=== PATIENT | female | born 1990 | race Caucasian/White ===

== ENCOUNTER 2024-10-01 08:21 | Emergency (ER) | payer BC, SELFPAY ==
--- OUTSIDE RECORDS SUMMARY | 2024-10-01 08:24 | XMS REPORT | Continuity of Care Document ---
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 Name Role Phone MARISA ENRIQUE Attending Clinician Aca ble Payers Payer Name Policy Type Policy Number Effective Date Expirati on Date Source [employer] CHOICE POS II [id number] 2018 00:00:00 Allergies, Adverse Reactions, Alerts Allergy Name Allergy Type Status Severity Reaction(s) Onset Date Inactive Date Treating Clinician Comments Source NO KNOWN ALLERGIE S Drug Class Active [facility] Social History Smoking Status Start Date Stop Date Source Heavy Tobacco Smoker [facility] Medical Medications Ordered Medication Name Filled Medication Name Start Date Stop Date Current Medication? Ordering Clinician Indication Dosage Frequency Signature (SIG) Comments Components Source buspirone 5 mg tablet 15 mg every 6 hours by oral route. buspirone 5 mg tablet 15 mg every 6 hours by oral route. 2023-06 00:00: 00 No 15mg Q6H buspirone 5 mg tablet 15 mg every 6 hours by oral route. [facility] Vital Signs Vital Name Observation Time Observation Value Comments S ource BP Diastolic 2024-03-23 00:00:00 84 mm[Hg] [facility] Height 2024-03-23 00:00:00 67 [in_i] [facility] BMI (Body Mass Index) 2024-03-23 00:00:00 42.3 kg/m2 [facility] BP Systolic 2024-03-23 00:00:00 132 mm[Hg] [facility] Body Weight 2024-03-23 00:00:00 270 [lb_av] [facility] Encounters Start Date/Time End Date/Time Encounter Type Admission Type Attending Clinicians Care Facility Care Department Encounter ID Source 2024-03-23 00:00:00 2024-03-23 00:00:00 Edita Avelar MD: [id number] [place] [address] , Ph. [email or web address] [place] Office [id number] [facility] 2020-07-11 11:00:00 2020-07-11 11:00:00 Outpatient MARISA TAAMYO [facility] [id number] [facility] 2020-07-11 11:00:00 2020-07-11 11:00:00 Outpatient MARISA TAMAYO [facility] [id number] [facility] 2020-05-24 11:00:00 2020-05-24 11:00:00 Outpatient MARISA TAMAYO [facility] [id number] [facility] 2020-05-24 11:00:00 2020-05-24 11:00:00 Outpatient MARISA TAMAYO [facility] [id number] [facility]
--- NOTE | 2024-10-01 08:52 | EDPHYS ---
Physician Documentation [facility] Name: Bozena Vivar Age: 34 yrs Sex: Female : 1990 Arrival Date: 10/01/2024 Time: 08:21 Bed 4 Private MD: ED Physician Dillan Barrett HPI: 10/01 08:48 This 34 yrs old Female presents to ER via Ambulatory with complaints of Foreign Body In rn Ear. 08:48 The patient presents with a foreign body sensation. The complaints affect the right rn ear. Onset: The symptoms/episode began/occurred this morning. Modifying factors: The symptoms are alleviated by nothing, the symptoms are aggravated by nothing. The patient has not experienced similar symptoms in the past. Patient reports had foreign body sensation in right ear. Hitchcock fluttering and possibly insect in ear this morning. By the time she arrived sensation has gone. No foreign body sensation or vibration or movement sensed by patient. Patient did try to get it out and has small abrasion to auditory canal but no active drainage. No change in hearing.. Historical: - Allergies: 08:30 No Known Allergies; aa5 - PMHx: 08:30 Pre-diabetes; aa5 - PSHx: 08:30 None; aa5 - Immunization history:: Adult Immunizations unknown. - Infectious Disease History:: Denies. - Social history:: Smoking status: Patient reports the use of cigarette tobacco products. - Family history:: not pertinent. - Hospitalizations: : No recent hospitalization is reported. ROS: 08:48 Constitutional: Negative for fever, chills, and weight loss, ENT: No longer has foreign rn body sensation in right ear, has mild discomfort Exam: 08:48 Constitutional: This is a well developed, well nourished patient who is awake, alert, rn and in no acute distress. ENT: Left auditory canal and TM normal. Right auditory canal with small abrasion at 3 o'clock position, no foreign body or insect found, no evidence of perforation or damage to TM. Vital Signs: 08:30 BP 131 / 87; Pulse 86; Resp 16 S; Temp 97.5(TE); Pulse Ox 97% on R/A; Weight 117.93 kg aa5 (R); Height 5 ft. 7 in. (R); 08:30 Body Mass Index 40.72 (117.93 kg, 170.18 cm) aa5 MDM: 08:27 Medical Screening Exam initiated rn 08:48 Differential diagnosis: foreign body. Data reviewed: vital signs, nurses notes, and as rn a result, I will discharge patient. Counseling: I had a detailed discussion with the patient and/or guardian regarding the historical points, exam findings, and any diagnostic results supporting the discharge/admit diagnosis, the need for outpatient follow up, to return to the emergency department if symptoms worsen or persist or if there are any questions or concerns that arise at home. Special discussion: I discussed with the patient/guardian in detail that at this point there is no indication for admission to the hospital. It is understood, however, that if the symptoms persist or worsen the patient needs to return immediately for re-evaluation. ED course: No foreign body identified, insect likely exited prior to evaluation.. Administered Medications: No medications were administered Disposition Summary: 10/01/24 08:51 Discharge Ordered Notes: Location: Home rn Problem: new rn Symptoms: have improved rn Condition: Stable rn Diagnosis - Foreign body in right ear - insect, resolved prior to arrival rn Followup: rn - With: Private Physician - When: As needed - Reason: Recheck today's complaints, Re-evaluation by your physician Discharge Instructions: - Discharge Summary Sheet rn - Ear Foreign Body rn Forms: - Medication Reconciliation Form rn - Antibiotic director of government sales - Prescription Opioid Use rn - Patient Portal Instructions rn - Leadership Thank You Letter rn Signatures: Dillan Barrett MD MD rn Calderon, Audri, RN RN aa5
--- NOTE | 2024-10-01 08:52 | ER ---
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 08:30 Coronavirus screen: At this time, the client does not indicate any symptoms associated aa5 with coronavirus-19. Ebola Screen: Patient denies travel to an Ebola-affected area in the 21 days before illness onset. Initial Sepsis Screen: Does the patient meet any 2 criteria? No. Patient's initial sepsis screen is negative. Does the patient have a suspected source of infection? No. Patient's initial sepsis screen is negative. Risk Assessment: Do you want to hurt yourself or someone else? Patient reports no desire to harm self or others. Onset of symptoms was September 2024. 08:30 Acuity: UMESH 4 aa5 08:30 Method Of Arrival: Ambulatory aa5 Triage Assessment: 08:42 General: Appears in no apparent distress. uncomfortable, Behavior is cooperative, bp appropriate for age, anxious. Pain: Complains of pain in right ear. EENT: Reports pain in right ear. Neuro: No deficits noted. Cardiovascular: No deficits noted. Respiratory: No deficits noted. GI: No signs and/or symptoms were reported involving the gastrointestinal system. : No signs and/or symptoms were reported regarding the genitourinary system. Derm: No deficits noted. Musculoskeletal: No deficits noted. Historical: - Allergies: 08:30 No Known Allergies; aa5 - PMHx: 08:30 Pre-diabetes; aa5 - PSHx: 08:30 None; aa5 - Immunization history:: Adult Immunizations unknown. - Infectious Disease History:: Denies. - Social history:: Smoking status: Patient reports the use of cigarette tobacco products. - Family history:: not pertinent. - Hospitalizations: : No recent hospitalization is reported. Screenin:43 [facility] ED Fall Risk Assessment (Adult) History of falling in the last 3 months, bp including since admission No falls in past 3 months (0 pts) Confusion or Disorientation No (0 pts) Intoxicated or Sedated No (0 pts) Impaired Gait No (0 pts) Mobility Assist Device Used No (0 pt) Altered Elimination No (0 pt) Score/Fall Risk Level 0 - 2 = Low Risk Oriented to surroundings. Abuse screen: Denies threats or abuse. Denies injuries from another. Nutritional screening: No deficits noted. Tuberculosis screening: No symptoms or risk factors identified. Assessment: 08:43 General: Appears in no apparent distress. uncomfortable, Behavior is cooperative, bp appropriate for age, anxious. Vital Signs: 08:30 BP 131 / 87; Pulse 86; Resp 16 S; Temp 97.5(TE); Pulse Ox 97% on R/A; Weight 117.93 kg aa5 (R); Height 5 ft. 7 in. (R); 08:30 Body Mass Index 40.72 (117.93 kg, 170.18 cm) aa5 ED Course: 08:25 Patient arrived in ED. cj3 08:27 Dillan Barrett MD is Attending Physician. rn 08:30 Arm band placed on. aa5 08:32 Triage completed. aa5 08:42 Mynor Booker, AN is Primary Nurse. bp 08:43 Patient has correct armband on for positive identification. bp 09:06 No provider procedures requiring assistance completed. Patient did not have IV access bp during this emergency room visit. Administered Medications: No medications were administered Medication: 08:43 VIS not applicable for this client. bp Outcome: 08:51 Discharge ordered by . rn 09:06 Discharged to home ambulatory, with family, bp 09:06 Condition: stable 09:06 Discharge instructions given to patient, Instructed on discharge instructions, follow up and referral plans. Demonstrated understanding of instructions, follow-up care, 09:06 Patient left the ED. bp Signatures: Dillan Barrett MD MD rn Calderon, Audri RN RN [facility] Mynor Booker, AN RN May Rossi 3
[2024-10-01 09:11] VITALS: BP 131/87; TEMP 97.5; O2SAT 97
== END 2024-10-01 09:06 | disposition home or self-care (01) ==
LOC: ER 08:21
DX: T16.1XXA Foreign body in right ear, initial encounter (principal)
CPT/HCPCS: 99282